=== PATIENT | female | born 1955 | race Caucasian/White ===

== ENCOUNTER 2022-06-08 05:00 | Outpatient (REF) | payer MEDICAID, SELFPAY ==
[2022-06-08 09:11] LABS: Hematocrit 42.4 % (37-47); Hemoglobin 13.6 g/dL (12.0-15.0); Mean Corp Hgb Conc 32.1 g/dL (32-36); Mean Corpuscular Hgb 31.6 pg (27.0-32.0); Mean Corpuscular Volume 98.6 fL (81-99); Mean Platelet Vol. 10.4 fl (6.2-12.0); Platelet Count 233 K/mm3 (150-450); RBC Distribution Width CV 12.3 % (11.6-14.6); RBC Distribution Width SD 44.5 fl (35.1-43.9); White Blood Count 5.7 K/mm3 (4.4-11.0)
[2022-06-08 09:46] LABS: ALB/GLOB Ratio 1.2 RATIO (0.9-2.4); AST(SGOT) 19 U/L (15-37); Alanine Aminotransfer ALT/SGPT 39 U/L (13-56); Albumin, Serum 3.5 g/dL (3.2-5.0); Alkaline Phosphatase 60 U/L (45-117); Anion Gap 6 (5-15); BUN 16 mg/dL (7-18); BUN/Creat Ratio 15.7 RATIO (10-20); Calcium,Total 8.9 mg/dL (8.5-10.1); Chloride 104 mmol/L (98-107); Cholesterol 98 mg/dL (200); Creatinine, Serum 1.02 mg/dL (0.55-1.02); EST Glomerular Filtration Rate 57 mL/min (>60); Est Glom Filt Rate - Afr Amer 69 mL/min (>60); Globulin 2.9 g/dL (2.2-4.2); Glucose 79 mg/dL (74-106); High Density Lipoprotein 49 mg/dL; Potassium 4.1 mmol/L (3.5-5.1); Protein, Total 6.4 g/dL (6.4-8.2); Sodium Level 139 mmol/L (136-145); Triglycerides 35 mg/dL; Very Low Density Lipoprotein 7 mg/dL (5-40)
[2022-06-08 10:12] LABS: Vitamin D,25 Hydroxy 50.2 ng/mL
[2022-06-11 17:07] LABS: KEPPRA (LEVETIRACETAM) 35.3 ug/mL (10.0-40.0)
[2022-06-11 19:43] LABS: Lamotrigine (Lamictal) Level 7.3 ug/mL (2.0-20.0)
== END 2022-06-08 23:59 | disposition home or self-care (01) ==
LOC: OLS.ACW300 05:00
PROVIDERS: Referring Provider Family Medicine; Visit Provider Family Medicine
DX: R27.0 Ataxia, unspecified (principal); G40.409 Other generalized epilepsy and epileptic syndromes, not intractable, without status epilepticus; E11.9 Type 2 diabetes mellitus without complications; F05 Delirium due to known physiological condition
CPT/HCPCS: 36415; 80053; 80061; 80177; 82306; 82542; 84443; 85027